=== PATIENT | female | born 1980 | race Caucasian/White ===

== ENCOUNTER 2016-08-22 14:31 | Emergency (ER) | payer OTHER ==
[2016-08-22] MEDS ORDERED: HYDROXYZINE PAMOATE 50 MG CAPSULE PO ONE (16:16)
[2016-08-22] MEDS ORDERED: FAMOTIDINE 20 MG TABLET PO ONE (16:16)
--- NOTE | 2016-08-22 16:17 | ER Document Report ---
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 She is takes up to 100 mg of Benadryl without relief. She saw another ER provider on Wednesday at a hospital in [place] and they told her she had a dermatitis. I gave her a shot of Decadron and gave her or prednisone which she does not want to take. She wants to know what it is and she wants it to be gone. 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 No exposure to poison filomena. She did cut the grass 2 days prior to this occurring. She states that the last time she had it there was a steroid lotion that she used on her body that helped. Associated Symptoms: None Exacerbated by: Denies Relieved by: Denies Similar symptoms previously: Yes Recently seen / treated by doctor: Yes - ROS ROS below otherwise negative: Yes Systems Reviewed and Negative: Yes All other systems reviewed and negative - DERM Skin Color: Normal Past Medical History - General Information source: Patient - Social History Smoking Status: Never Smoker Frequency of alcohol use: None Drug Abuse: None Lives with: Spouse/Significant other Family History: Reviewed & Not Pertinent Patient has suicidal ideation: No Patient has homicidal ideation: No - Medical History Medical History: Negative Renal/ Medical History: Denies: Hx Peritoneal Dialysis Surgical Hx: Negative Vertical Provider Document - CONSTITUTIONAL Agree With Documented VS: Yes - INFECTION CONTROL TRAVEL OUTSIDE OF THE [place]. IN LAST 30 DAYS: No - HEENT HEENT: Normocephalic. negative: Conjuctival Injection, Pharyngeal Erythema - NECK Neck: Supple - RESPIRATORY Respiratory: Breath Sounds Normal, No Respiratory Distress O2 Sat by Pulse Oximetry: 100 - CARDIOVASCULAR Cardiovascular: Regular Rate, Regular Rhythm - GI/ABDOMEN Gastrointestinal: Abdomen Soft, Abdomen Non-Tender - NEURO Level of Consciousness: Awake, Alert - DERM Integumentary: Rash - Isolated papular scaling lesions that she years scratching on her upper back, ankles and dorsal forearms. She does have a wider scaling patch that almost like eczema but not a herald patch waistline. No wheals. Course - Vital Signs Vital signs: Temp Pulse Resp BP Pulse Ox 98.3 F 69 18 104/54 L 100 08/22/16 14:45 08/22/16 14:45 08/22/16 14:45 08/22/16 14:45 08/22/16 14:45 Discharge - Discharge Clinical Impression: Dermatitis, Itching Condition: Good Disposition: HOME, SELF-CARE Instructions: Topical Steroid Cream or Ointment ([facility]), Acid-Suppressing Medication ([facility]) Additional Instructions: see the structural steel equipment erector [place] if worse Please complete the patient satisfaction survey if you get one, and return it.. If you do not receive a survey, then you can go to the [facility] website, [email or web address] and place your comments about your very good care. Thank you very much. It was a pleasure being your medical provider today. Prescriptions: Hydroxyzine Pamoate 50 mg PO Q4HP PRN #60 capsule PRN Reason: Fluocinolone/Shower Cap [Bsucd-Uolbboo-Qw Scalp Oil] 1 applic TP DAILY #120 oil Referrals: JUMANA SMALLS, DO [ACTIVE STAFF] - Follow up as needed
[2016-08-22 16:36] VITALS: BP 96/57
== END 2016-08-22 16:36 | disposition home or self-care (01) ==
LOC: ER 14:31
DX: L30.9 Dermatitis, unspecified (principal)
CPT/HCPCS: 99282

== ENCOUNTER → 2016-10-07 | Outpatient (CLI) | payer OTHER ==
--- NOTE | 2016-10-07 10:10 | RADIOLOGY REPORT (SQ) ---
EXAM DESCRIPTION: CT SINUSES FOR ENT COMPLETED DATE/TIME: 10/07/2016 7:57 am REASON FOR STUDY: DEVIATED NASAL SEPTUM J34.2 DEVIATED NASAL SEPTUM COMPARISON: None. TECHNIQUE: Noncontrast scanning through the paranasal sinuses using bone algorithm. Reconstructed MPR images reviewed. All images stored on PACS. Images acquired for image guided surgery. All CT scanners at this facility use dose modulation, iterative reconstruction, and/or weight based d osing when appropriate to reduce radiation dose to as low as reasonably achievable (ALARA). [facility]: Dose Right [facility]: CareDose [facility]: Dose Right [facility]: Teradose 4D [facility]: ConferenceEdge RADIATION DOSE: 59.3 mGy. FINDINGS: NASAL PASSAGES: Clear. No polyps or masses. OSTEOMEATAL UNITS AND NASOFRONTAL DUCTS: Patent. No agger nasi or Makayla cells. MAXILLARY SINUSES: Well-pneumatized and clear. Maxillary sinus outlets are patent. ETHMOID SINUSES: Well-pneumatized and clear. SPHENOID SINUSES: Well-pneumatized and clear. No sphenoethmoid air cells or pneumatized pterygoid rec ess. No pneumatized dorsal sella. FRONTAL SINUSES: Well-pneumatized and clear. MASTOID AIR CELLS: Clear. ORBITS: Normal and symmetrical. NASAL SEPTUM: Very mild leftward nasal septal deviation along its mid 3rd, best shown on coronal imag es 72 through 82. No nasal septal spurs. TEMPOROMANDIBULAR JOINTS: Normal. TURBINATES: No pneumatized turbinates. MUCOPERIOSTEAL THICKENING: No. MUCOCELE: No. OTHER: No other significant findings. IMPRESSION: NO EVIDENCE OF ACUTE SINUSITIS. Very mild leftward nasal septal deviation along its mid 3rd. TECHNICAL DOCUMENTATION: JOB ID: [id number] Quality ID # [id number]: Final reports with documentation of one or more dose reduction techniques (e.g., Au tomated exposure control, adjustment of the mA and/or kV according to patient size, use of iterative reconstruction technique) 2010 [employer]- All Rights Reserved
== END ==
LOC: RAD 07:26
PROVIDERS: ATTEND Otolaryngology
DX: J34.2 Deviated nasal septum (principal)
CPT/HCPCS: 70486

== ENCOUNTER 2017-07-01 08:56 | Emergency (ER) | payer OTHER ==
[2017-07-01 09:03] VITALS: BP 100/60
[2017-07-01] MEDS ORDERED: ONDANSETRON 4 MG TAB.RAPDIS PO ONE (09:47)
--- NOTE | 2017-07-01 09:52 | ER Document Report ---
HPI - HPI Pain Level: 4 Notes: Patient is a 36-year-old female who presents to the ED complaining of left ear pain, nausea, and occasional dizziness 2-3 days. Patient states that she had a sinus infection last week and had medication for that which improved her sinus congestion. Patient states that she is still eating and drinking without any difficulties, but does have a decreased p.o. intake. Patient states that the left ear pain is worsened with pressure. She has been using some over-the- counter meds with minimal relief. Patient states that she also does have occasional migraines, but currently does not have any headache. Patient is on medications for her chronic migraines. Patient states that she currently is not dizzy. Denies any smoking or IV drug use. Patient denies any and does not want to do a test. Denies any headache, fever, neck pain , changes in vision/speech/mentation/hearing, URI, sore throat, chest pain, palpitations, syncope, cough, shortness of breath, wheeze, dyspnea, abdominal pain, vomiting/diarrhea, urinary retention, dysuria, hematuria, or rash. - ROS Systems Reviewed and Negative: Yes All other systems reviewed and negative - CONSTITUTIONAL Constitutional: DENIES: Fever - none recorded, Chills - EENT EENT: REPORTS: Ear Pain - left. DENIES: Sore Throat, Eye problems - NEURO Neurology: REPORTS: Headache - global. DENIES: Vision blurred Past Medical History - Social History Smoking Status: Never Smoker Chew tobacco use (# tins/day): No Frequency of alcohol use: None Drug Abuse: None Family History: Reviewed & Not Pertinent Patient has suicidal ideation: No Patient has homicidal ideation: No Neurological Medical History: Reports: Hx Migraine Renal/ Medical History: Denies: Hx Peritoneal Dialysis Musculoskeltal Medical History: Reports Hx Arthritis Psychiatric Medical History: Reports: Hx Depression - anxiety Past Surgical History: Reports: Hx Breast Surgery - lumpectomy, Hx Gynecologic Surgery - ovarian cysts, Hx Orthopedic Surgery - back, Hx Tonsillectomy Vertical Provider Document - CONSTITUTIONAL Agree With Documented VS: Yes Notes: PHYSICAL EXAMINATION: GENERAL: Well-appearing, well-nourished and in no acute distress. A&Ox4. Answers questions appropriately. Moves comfortably w/o notable distress HEAD: Atraumatic, normocephalic. EYES: Pupils equal round and reactive to light, extraocular movements intact, sclera anicteric, conjunctiva are normal. ENT: Left EAC mildly erythemic w/o swelling. + tenderness to palp of the tragus and within the EAC. Rt EAC wnl. TM's intact b/l without erythema, fluid , or perforation. Nares patent and without discharge. oropharynx no erythema without exudates. No tonsilar hypertrophy without erythema or exudate. No palatine shift. Uvula midline. No tongue protrusion. No drooling, hoarseness , or airway compromise. Moist mucous membranes. No sinus tenderness. NECK: Normal range of motion, supple without lymphadenopathy. No rigidity/ meningismus. LUNGS: Breath sounds clear to auscultation bilaterally and equal. No wheezes rales or rhonchi. No retractions HEART: Regular rate and rhythm without murmurs, rubs, gallops. ABDOMEN: Soft, nontender, nondistended abdomen. No guarding, no rebound. No masses appreciated. Normal bowel sounds present. No CVA tenderness bilaterally. No hepatosplenomegaly. NEUROLOGICAL: Normal speech, normal gait. Normal sensory, motor exams PSYCH: Normal mood, normal affect. SKIN: Warm, Dry, normal turgor, no rashes or lesions noted. - INFECTION CONTROL TRAVEL OUTSIDE OF THE U.S. IN LAST 30 DAYS: No - RESPIRATORY O2 Sat by Pulse Oximetry: 100 Course - Re-evaluation Re-evalutation: 07/01/17 09:57 Patient is an afebrile, well-hydrated, 36-year-old female who presents to the ED with acute otitis externa of the left ear. Vitals are stable. PE is otherwise unremarkable. No labs or imaging warranted at this time based on H& P. Patient is nontoxic-appearing. She is tolerating p.o. without any difficulties. Low suspicion for any meningitis, sepsis, peritonsillar/ pharyngeal abscess, respiratory compromise, Jack's, mastoiditis, or other emergent systemic condition at this time. Patient is aware this condition can change from initial presentation and she needs to monitor symptoms closely. I will send her home with a prescription for neomycin otic drops as well as Zofran. Conservative measures otherwise for symptoms. Recheck with your PCM in 3-5 days. Return to the ED with any worsening/concerning symptoms otherwise as reviewed in discharge. Patient is in agreement. - Vital Signs Vital signs: Temp Pulse Resp BP Pulse Ox 98.1 F 75 16 100/60 100 07/01/17 09:01 07/01/17 09:01 07/01/17 09:01 07/01/17 09:01 07/01/17 09:01 Discharge - Discharge Clinical Impression: Acute otitis externa of left ear Qualifiers: Otitis externa type: unspecified type Qualified Code(s): H60.502 - Unspecified acute noninfective otitis externa, left ear Condition: Stable Disposition: HOME, SELF-CARE Instructions: Use of Ear Drops ([facility]), Otitis Externa ([facility]) Additional Instructions: Maintain adequate fluid and food intake [place] diet (B.R.A.T.) Bananas, rice, apples, toast, etc Zofran as needed tylenol if needed Monitor for any worsening symptoms Recheck with your PCM in 3-5 days Consider consult with ENT for ongoing/worsening symptoms Return to the ED with any worsening symptoms and/or development of fever, headache, chest pain, palpitations, syncope, shortness of breath, trouble breathing, abdominal pain, n/v/d, blood in stool/urine, weakness, or other worsening symptoms that are concerning to you. Prescriptions: Neomy Sulf/Polymyx B Sulf/Hc [Xcnwxrnl-Rkougjwtp-Wl Ear Soln] 4 drop OT TID #1 bottle Ondansetron [Zofran Odt 4 mg Tablet] 1 - 2 tab PO Q4H PRN #15 tab.rapdis PRN Reason: For Nausea/Vomiting Referrals: DARLINE THOMPSON DO [ASSOCIATE] - Follow up as needed
== END 2017-07-01 10:00 | disposition home or self-care (01) ==
LOC: ER 08:56
DX: H60.502 Unspecified acute noninfective otitis externa, left ear (principal); H92.02 Otalgia, left ear; R11.0 Nausea; R42 Dizziness and giddiness; G43.909 Migraine, unspecified, not intractable, without status migrainosus; Z79.899 Other long term (current) drug therapy
CPT/HCPCS: 99282; S0119

== ENCOUNTER → 2017-10-21 | Outpatient (CLI) | payer OTHER ==
--- NOTE | 2017-10-21 08:20 | RADIOLOGY REPORT (SQ) ---
EXAM DESCRIPTION: CT SINUSES FOR ENT COMPLETED DATE/TIME: 10/21/2017 7:56 am REASON FOR STUDY: ACUTE RECURRENT SINUSITIS, UNSPECIFIED(J01.91), CHRONIC SINUSITIS (J32.9) J01.91 ACUTE RECURRENT SINUSITIS, UNSPECIFIED J32.9 CHRONIC SINUSITIS, UNSPECIFIED H69.83 OTHER SPECIFIED DISORDERS OF EUSTACHIAN TUBE, BILATER COMPARISON: CT sinuses 10/07/2016 TECHNIQUE: Noncontrast scanning through the paranasal sinuses using bone algorithm. Reconstructed MPR images reviewed. All images stored on PACS. Images acquired for image guided surgery. All CT scanners at this facility use dose modulation, iterative reconstruction, and/or weight based d osing when appropriate to reduce radiation dose to as low as reasonably achievable (ALARA). [facility]: Dose Right [facility]: CareDose [facility]: Dose Right [facility]: Teradose 4D [facility]: LitRes RADIATION DOSE: 46 mGy. FINDINGS: NASAL PASSAGES: Clear. No polyps or masses. OSTEOMEATAL UNITS AND NASOFRONTAL DUCTS: Patent. No agger nasi left Makayla cells. Small right Makayla cell coronal image 100. MAXILLARY SINUSES: Well-pneumatized and clear. Maxillary sinus outlets are patent. ETHMOID SINUSES: Well-pneumatized and clear. SPHENOID SINUSES: Well-pneumatized and clear. No sphenoethmoid air cells or pneumatized pterygoid rec ess. No pneumatized dorsal sella. FRONTAL SINUSES: Well-pneumatized and clear. MASTOID AIR CELLS: Clear. ORBITS: Normal and symmetrical. NASAL SEPTUM: Mild leftward nasal septal deviation No nasal septal spurs. TEMPOROMANDIBULAR JOINTS: Normal. TURBINATES: No pneumatized turbinates. MUCOPERIOSTEAL THICKENING: No. MUCOCELE: No. OTHER: Bilateral mastoid air cells and middle ear cavities are clear. Bilateral station tubes appear patent. No gross nasopharyngeal mass. IMPRESSION: NO EVIDENCE OF ACUTE SINUSITIS. TECHNICAL DOCUMENTATION: JOB ID: [id number] Quality ID # [id number]: Final reports with documentation of one or more dose reduction techniques (e.g., Au tomated exposure control, adjustment of the mA and/or kV according to patient size, use of iterative reconstruction technique) 2010 [employer]- All Rights Reserved Reading location - IP/workstation name: [email or web address]
== END ==
LOC: RAD 07:25
PROVIDERS: ATTEND Otolaryngology
DX: J01.91 Acute recurrent sinusitis, unspecified (principal); H69.83 Other specified disorders of Eustachian tube, bilateral
CPT/HCPCS: 70486

== ENCOUNTER 2017-10-22 11:09 | Observation (INO) | payer OTHER ==
[~2017-10-22 11:09] MED LIST: ACETAMINOPHEN 1,000 MG/100 ML RTUPB IV ONE; CEFAZOLIN 2 GM/D5W RTU 2 GM/50 ML RTUPB IV PRN; DEXAMETHASONE SOD PHOSPHATE INJ 4 MG/1 ML VIAL ONE; FENTANYL CITRATE INJ/PF 100 MCG/2 ML AMPUL ONE; LIDOCAINE 2% INJ-PF (20 MG/ML) 10 ML AMPUL ONE; MIDAZOLAM 2 MG/2 ML INJ ONE; PROPOFOL INJ 200 MG/20 ML VIAL IV ONE
[2017-10-22] MEDS ORDERED: MINERAL OIL (STERILE) 10 ML VIAL ONE (11:15)
[2017-10-22] MEDS ORDERED: BUPIVACAINE HCL 0.5%/EPI 1:200000 INJ 1.8 ML CARTRIDGE ONE (11:16)
[2017-10-22] MEDS ORDERED: BUPIVACAINE HCL 0.5%-EPI 1:200000 INJ/PF 30 ML VIAL ONE (11:16)
[2017-10-22] MEDS ORDERED: OXYMETAZOLINE HCL 0.05% NASAL SPRAY 15 ML BOTTLE ONE (11:17)
[2017-10-22] MEDS ORDERED: FAMOTIDINE INJ/PF 20 MG/2 ML SDV IV ONE (11:42)
[2017-10-22 12:03] LABS: ANION GAP 10 (5-19); BLOOD UREA NITROGEN 17 mg/dL (7-20); CALCIUM 8.9 mg/dL (8.4-10.2); CARBON DIOXIDE 27 mmol/L (22-30); CHLORIDE 108 mmol/L (98-107); GLUCOSE 78 mg/dL (75-110); POTASSIUM 4.6 mmol/L (3.6-5.0); SODIUM 144.7 mmol/L (137-145)
[2017-10-22 12:15] LABS: HEMOGLOBIN 12.5 g/dL (12.0-15.5); MEAN CORPUSCULAR HGB CONC 33.8 g/dL (32.0-36.0); MEAN CORPUSCULAR VOLUME 92 fl (80-97); PLATELET COUNT 272 10^3/uL (150-450); RED BLOOD COUNT 4.04 10^6/uL (3.72-5.28); RED CELL DISTRIBUTION WIDTH 13.9 % (11.5-14.0); WHITE BLOOD COUNT 6.3 10^3/uL (4.0-10.5)
[2017-10-22] MEDS ORDERED: BACITRACIN ZINC OINTMENT 15 GM ONE (13:02)
[2017-10-22] MEDS ORDERED: DIPHENHYDRAMINE HCL 50 MG/ML VIAL IV PRN (13:08)
[2017-10-22] MEDS ORDERED: MEPERIDINE HCL/PF INJ 25 MG/1 ML DISP.SYRIN IV PRN (13:08)
[2017-10-22] MEDS ORDERED: MORPHINE SULFATE 10 MG/ML INJ IV PRN (13:08)
[2017-10-22] MEDS ORDERED: PROMETHAZINE HCL INJ 25 MG/1 ML VIAL IV PRN ×3 (13:08→13:54)
[2017-10-22] MEDS ORDERED: FENTANYL CITRATE INJ/PF 100 MCG/2 ML AMPUL IV PRN ×3 (13:08)
[2017-10-22] MEDS: FENTANYL CITRATE INJ/PF 100 MCG/2 ML AMPUL ONE ×2 (13:47→13:51)
[2017-10-22] MEDS ORDERED: ONDANSETRON HCL INJ/PF 4 MG/2 ML SDV IV PRN (13:54)
[2017-10-22] MEDS ORDERED: RINGERS SOLUTION,LACTATED 1,000 ML IV PRN (13:54)
[2017-10-22] MEDS ORDERED: HYDROCODONE/ACETAMINOPHEN 5-325 MG TABLET PO PRN (13:54)
[2017-10-22] MEDS ORDERED: ONDANSETRON 4 MG TAB.RAPDIS PO PRN (14:09)
[2017-10-22] MEDS ORDERED: PROMETHAZINE HCL INJ 25 MG/1 ML VIAL ONE (14:16)
[2017-10-22] MEDS: HYDROMORPHONE HCL INJ/PF 2 MG/ML AMPULE ONE ×2 (14:17→15:10)
[2017-10-22 16:40] VITALS: BP 90/50
[2017-10-22] MEDS ORDERED: SUCCINYLCHOLINE CHLORIDE INJ 200 MG/10 ML VIAL ONE (16:44)
[2017-10-22] MEDS ORDERED: METOCLOPRAMIDE HCL INJ/PF 10 MG/2 ML SDV ONE (16:44)
--- NOTE | 2017-10-23 10:10 | OPERATIVE REPORT E ---
Operative Report NAME: KELVIN AVILES : 1980 AGE: 37Y DATE OF SURGERY: 10/22/2017 ROOM: OR PREOPERATIVE DIAGNOSES: 1. Acute recurrent sinusitis. 2. Chronic rhinosinusitis. 3. Nasal septal deviation. 4. Bilateral inferior turbinate hypertrophy. 5. Chronic eustachian tube dysfunction. POSTOPERATIVE DIAGNOSES: 1. Acute recurrent sinusitis. 2. Chronic rhinosinusitis. 3. Nasal septal deviation. 4. Bilateral inferior turbinate hypertrophy. 5. Chronic eustachian tube dysfunction. OPERATIONS PERFORMED: 1. Bilateral image guidance transnasal maxillary sinus balloon sinuplasty via bilateral transnasal rigid surgical endoscopy. 2. Bilateral image guidance transnasal/intranasal frontal sinus balloon sinuplasty via bilateral transnasal rigid surgical endoscopy. 3. Bilateral eustachian tube balloon plasty with bilateral transnasal rigid surgical endoscopy. SURGEON: DARLINE THOMPSON D.O. ANESTHETIC: General endotracheal tube. ANESTHESIA STAFF: Tod SAENZ ESTIMATED BLOOD LOSS: 15 mL. FLUIDS: 1400 mL. COMPLICATIONS: None. DRAINS: None. SPONGE COUNT: Verified. MATERIALS FORWARDED SPECIMEN: None. FINDINGS: 1. There was no sign of nasal polyp disease changes or sinus discharge or postnasal drainage noted. 2. The yamila appeared flattened in appearance. 3. Left nasal septal deviation involving bone and cartilage. 4. Bilateral inferior turbinate hypertrophy. 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 The patient was referred for and she complained of a history of symptoms consistent with acute recurrent sinusitis episodes occurring each year requiring antibiotics and these have gone on for a number of years. The patient complains of frontal sinus and maxillary sinus pain especially. The patient also complained of a history of symptoms consistent with chronic rhinosinusitis over the years. The patient otherwise denied having difficulty with nasal air flow over the years. The patient also underwent CT sinus imaging and office-based flexible endoscopy. The patient also complained of a chronic history over the years of eustachian tube dysfunction resulting a variety of ear symptoms consisting of ear pain, pressure, fullness, and congestion. After extensive discussion with the patient, recommendation and plan was made for bilateral maxillary, frontal sinus, and eustachian tube balloon plasty, which she voiced an understanding of and agreed with. The procedures and all of their risks and complications were all discussed in detail with the patient. She voiced an understanding and was in agreement and consent was obtained. PROCEDURE: The patient was taken to the main operating room and placed on the operating room table in the supine position. Appropriate monitors were placed. Using mask and IV access, general anesthesia was induced. The patient was transorally intubated without difficulty. The patient was positioned and prepped for image guidance balloon sinus and eustachian tube surgery. The image guidance system was set up and adjusted appropriately at the beginning of the case. The patient underwent a nasal examination with injection of local anesthetic with epinephrine to establish a nasal block. Afrin-soaked neuro patties were placed on each side. The patient was then prepped and draped in the usual fashion for nasal, sinus, and eustachian tube surgery. At this point, the Afrin-soaked neuro patties were removed. With the use of bilateral 0-degree rigid surgical endoscopy, the eustachian tube balloon plasty system was introduced and the eustachian tube balloon was inserted on each side without difficulty. It was inflated to 12 atmospheres on each side and remained in place for 2 minutes per side. This system was then withdrawn. Next, the frontal sinus image guidance balloon sinuplasty system was introduced with the assistance of 0-degree rigid surgical endoscopy on each side. This balloon system was inserted through the frontal sinus recess on each side and inflated to 12 atmospheres at 2 positions. This was removed. Next, the image guidance maxillary balloon sinuplasty system was introduced with the assistance of 0-degree rigid surgical endoscopy on each side. It was entered through the maxillary sinus os and inflated to 12 atmospheres on each side. Once complete, the balloon system was withdrawn. The nose was thoroughly irrigated and this was suctioned. There was adequate hemostasis noted. Next, one Telfa cotton nasal pack with bacitracin ointment was placed per side and these were secured with silk suture, which was also secured outside the nose. At this point, the patient's nose was cleaned and dried and she was returned to the anesthesia staff and was allowed to emerge from general anesthesia. The patient was then extubated in the main operating room and was transported to the post-anesthesia recovery unit in stable condition. There were no complications. DICTATING PHYSICIAN: DARLINE THOMPSON D.O. [id number] PHY#: [id number] ID: [id number] JOB#: [id number] ACCT: [id number] cc:DARLINE THOMPSON D.O. > YANCY
== END 2017-10-22 16:44 | disposition home or self-care (01) ==
LOC: OROUT 11:09 → INOR 13:54
PROVIDERS: ADMIT Otolaryngology; ATTEND Otolaryngology
PROC: 097F8ZZ Dilation of Right Eustachian Tube, Via Natural or Artificial Opening Endoscopic (ICD-10-PCS; 2017-10-22)
PROC: 09QT8ZZ Repair Left Frontal Sinus, Via Natural or Artificial Opening Endoscopic (ICD-10-PCS; 2017-10-22)
PROC: 09QQ8ZZ Repair Right Maxillary Sinus, Via Natural or Artificial Opening Endoscopic (ICD-10-PCS; 2017-10-22)
PROC: 09QR8ZZ Repair Left Maxillary Sinus, Via Natural or Artificial Opening Endoscopic (ICD-10-PCS; 2017-10-22)
PROC: 09QS8ZZ Repair Right Frontal Sinus, Via Natural or Artificial Opening Endoscopic (ICD-10-PCS; 2017-10-22)
PROC: 097G8ZZ Dilation of Left Eustachian Tube, Via Natural or Artificial Opening Endoscopic (ICD-10-PCS; principal; 2017-10-22 13:00)
DX: J01.91 Acute recurrent sinusitis, unspecified (principal); J32.9 Chronic sinusitis, unspecified; H69.83 Other specified disorders of Eustachian tube, bilateral; J34.2 Deviated nasal septum; J34.3 Hypertrophy of nasal turbinates
CPT/HCPCS: 31295; 31296; C9745; 160; 36415; 80048; 81025; 85027; J0131; J0330; J0690; J1100; J1170; J2250; J2550; J2704; J2765; J3010; J3490; S0028

== ENCOUNTER 2017-12-18 16:52 | Emergency (ER) | payer OTHER ==
[2017-12-18] MEDS ORDERED: LIDOCAINE 1% INJ-PF (10 MG/ML) 30 ML SDV INJ ONE (18:06)
--- NOTE | 2017-12-18 18:33 | ER Document Report ---
ED Medical Screen (RME) - General Chief Complaint: Laceration Stated Complaint: BIRD BITE Time Seen by Provider: 12/18/17 18:06 TRAVEL OUTSIDE OF THE U.S. IN LAST 30 DAYS: No - HPI Notes: 12/18/17 18:33 Bit by a bird - Related Data Allergies/Adverse Reactions: bupropion [From Wellbutrin] Allergy (Severe, Verified 12/18/17 17:06) Seizures ciprofloxacin [From Cipro] Allergy (Severe, Verified 12/18/17 17:06) Renal failure ibuprofen [From Motrin] Allergy (Severe, Verified 12/18/17 17:06) Renal failure NSAIDS (Non-Steroidal Anti-Inflamma Allergy (Severe, Verified 12/18/17 17:06) Renal failure Penicillins Allergy (Severe, Verified 12/18/17 17:06) Hives vancomycin Allergy (Severe, Verified 12/18/17 17:06) Shortness of Breath Past Medical History - Past Medical History Cardiac Medical History: Denies: Hx Coronary Artery Disease, Hx Heart Attack, Hx Hypertension Pulmonary Medical History: Denies: Hx Asthma, Hx Bronchitis, Hx COPD, Hx Pneumonia Neurological Medical History: Reports: Hx Migraine. Denies: Hx Cerebrovascular Accident, Hx Seizures Renal/ Medical History: Reports: Hx Kidney Stones. Denies: Hx Peritoneal Dialysis Musculoskeltal Medical History: Reports Hx Arthritis - back Psychiatric Medical History: Reports: Hx Depression - anxiety Past Surgical History: Reports: Hx Breast Surgery - lumpectomy, Hx Gynecologic Surgery - ovarian cysts, Hx Nose Surgery - Sinus dilation, Hx Orthopedic Surgery - back, Hx Tonsillectomy - Immunizations Hx Diphtheria, Pertussis, Tetanus Vaccination: Yes History of Influenza Vaccine for 01/2017 - 06/2017 Season: Yes Influenza Administration Date for 01/2017 - 06/2017 Season: 01/26/17 Review of Systems - Review of Systems -: Yes ROS unobtainable due to patient's medical condition - Bird bite Physical Exam - Vital signs Vitals: Temp Pulse Resp BP Pulse Ox 98.7 F 76 16 104/62 96 12/18/17 17:10 12/18/17 17:10 12/18/17 17:10 12/18/17 17:10 12/18/17 17:10 - General General appearance: Appears well In distress: None - Cardiovascular Rhythm: Regular Heart sounds: Normal auscultation Course - Vital Signs Vital signs: Temp Pulse Resp BP Pulse Ox 98.7 F 76 16 104/62 96 12/18/17 17:10 12/18/17 17:10 12/18/17 17:10 12/18/17 17:10 12/18/17 17:10
--- NOTE | 2017-12-18 18:36 | RADIOLOGY REPORT (SQ) ---
EXAM DESCRIPTION: HAND RIGHT 2 VIEWS COMPLETED DATE/TIME: 12/18/2017 6:25 pm REASON FOR STUDY: bird bite pain in the 4th and 5th fingers COMPARISON: None. EXAM PARAMETERS: NUMBER OF VIEWS: Three views. TECHNIQUE: AP, lateral and oblique radiographic images acquired of the right hand. LIMITATIONS: None. FINDINGS: MINERALIZATION: Normal. BONES: No acute fracture or dislocation. No worrisome bone lesions. JOINTS: No effusions. SOFT TISSUES: There is a small soft tissue air bubble in the skin web the between the bases of the 4t h and 5th fingers. No retained radiopaque foreign body. No adjacent bony abnormality OTHER: No other significant finding. IMPRESSION: Small soft tissue laceration with air bubble in the skin, in the soft tissues between th e bases of the 4th and 5th fingers. No retained radiopaque foreign body. No underlying fracture TECHNICAL DOCUMENTATION: JOB ID: [id number] [employer]- All Rights Reserved Reading location - IP/workstation name: [email or web address]
--- NOTE | 2017-12-18 19:13 | ER Document Report ---
ED General - General Chief Complaint: Laceration Stated Complaint: BIRD BITE Time Seen by Provider: 12/18/17 18:06 Notes: Patient is a 37 year old female without chronic medical problems who presents after sustaining a laceration on her left hand after being bitten by her pet bird. She states that this occurred earlier today. Since that time she has noted a dull, throbbing, aching pain to the affected area. Nothing improves or worsens the pain. She is up-to-date on all her immunizations. They got rid of the bird today. She denies any additional injuries or concerns. She has not seen her general doctor regarding today's concerns. TRAVEL OUTSIDE OF THE [place] IN LAST 30 DAYS: No - Related Data Allergies/Adverse Reactions: bupropion [From Wellbutrin] Allergy (Severe, Verified 12/18/17 17:06) Seizures ciprofloxacin [From Cipro] Allergy (Severe, Verified 12/18/17 17:06) Renal failure ibuprofen [From Motrin] Allergy (Severe, Verified 12/18/17 17:06) Renal failure NSAIDS (Non-Steroidal Anti-Inflamma Allergy (Severe, Verified 12/18/17 17:06) Renal failure Penicillins Allergy (Severe, Verified 12/18/17 17:06) Hives vancomycin Allergy (Severe, Verified 12/18/17 17:06) Shortness of Breath Past Medical History - General Information source: Patient - Social History Smoking Status: Never Smoker Frequency of alcohol use: None Drug Abuse: None Lives with: Spouse/Significant other Family History: Reviewed & Not Pertinent Patient has suicidal ideation: No Patient has homicidal ideation: No - Past Medical History Cardiac Medical History: Denies: Hx Coronary Artery Disease, Hx Heart Attack, Hx Hypertension Pulmonary Medical History: Denies: Hx Asthma, Hx Bronchitis, Hx COPD, Hx Pneumonia Neurological Medical History: Reports: Hx Migraine. Denies: Hx Cerebrovascular Accident, Hx Seizures Renal/ Medical History: Reports: Hx Kidney Stones. Denies: Hx Peritoneal Dialysis Musculoskeletal Medical History: Reports Hx Arthritis - back Psychiatric Medical History: Reports: Hx Depression - anxiety Past Surgical History: Reports: Hx Breast Surgery - lumpectomy, Hx Gynecologic Surgery - ovarian cysts, Hx Nose Surgery - Sinus dilation, Hx Orthopedic Surgery - back, Hx Tonsillectomy - Immunizations Hx Diphtheria, Pertussis, Tetanus Vaccination: Yes Review of Systems - Review of Systems Notes: Constitutional: Negative for fever. Eyes: Negative for visual changes. ENT: Negative for facial injury Cardiovascular: Negative for chest injury. Respiratory: Negative for shortness of breath. Gastrointestinal: Negative for abdominal injury. Genitourinary: Negative for genital injury Musculoskeletal: Negative for back injury. Skin: Positive for laceration/abrasions. Neurological: Negative for head injury. Physical Exam - Vital signs Vitals: Temp Pulse Resp BP Pulse Ox 98.7 F 76 16 104/62 96 12/18/17 17:10 12/18/17 17:10 12/18/17 17:10 12/18/17 17:10 12/18/17 17:10 Interpretation: Normal Notes: PHYSICAL EXAMINATION: GENERAL: Well-appearing, well-nourished and in no acute distress. HEAD: Atraumatic, normocephalic. EYES: sclera anicteric, conjunctiva are normal. ENT: Moist mucous membranes. NECK: Normal range of motion LUNGS: Normal work of breathing HEART: 2+ radial pulses bilaterally, capillary refill less than 1 second in all digits of the left hand EXTREMITIES: no pitting or edema. No cyanosis. Full flexion extension of the DIP, MCP and PIP of all digits of the left hand NEUROLOGICAL: No focal neurological deficits. Moves all extremities spontaneously and on command. PSYCH: Normal mood, normal affect. SKIN: Warm, Dry, normal turgor, 0.5 cm superficial laceration between the fourth and fifth metacarpals of the left hand. Course - Re-evaluation Re-evalutation: 12/18/17 19:11 Patient presents with a 0.5 cm laceration between the fourth and fifth digits of the right hand which is her dominant hand that was sustained after her pet bird bit her. Her tetanus is up-to-date. There is some bruising around the wound but it is otherwise a very clean laceration. The wound was cleaned, irrigated and closed with a single stitch. Her tetanus is already up-to-date. X-ray is unremarkable with the exception of the noted laceration. RMU motor and sensory distribution is intact. Full flexion and extension at the MCP, PIP , DIP of all digits against resistance. At this time will discharge with return precautions and follow-up recommendations. Verbal discharge instructions given a the bedside and opportunity for questions given. Medication warnings reviewed. Patient is in agreement with this plan and has verbalized understanding of return precautions and the need for primary care follow-up in the next 24-72 hours. - Vital Signs Vital signs: Temp Pulse Resp BP Pulse Ox 98.5 F 69 14 108/49 L 100 12/18/17 19:23 12/18/17 19:23 12/18/17 19:23 12/18/17 19:23 12/18/17 19:23 - Diagnostic Test Radiology reviewed: Image reviewed, Reports reviewed Radiology results interpreted by me: 12/18/17 19:12 Right hand x-ray: No acute fracture or retained foreign body. Procedures - Laceration/Wound Repair Left Hand Wound length (cm): 0.5 - . Wound's Depth, Shape: Superficial Laceration pre-procedure: Sterile PPE donned Anesthetic type: 1% Lidocaine Volume Anesthetic (mLs): 1 Wound explored: Clean Irrigated w/ Saline (mLs): 500 Wound Debrided: Minimal Wound Repaired With: Sutures Suture Size/Type: 5:0, Prolene Number of Sutures: 1 Post-procedure wound care: Sterile dressing applied Post-procedure NV exam normal: Yes Complications: No Discharge - Discharge Clinical Impression: Bitten by other birds, initial encounter Laceration of right hand Qualifiers: Encounter type: initial encounter Foreign body presence: without foreign body Qualified Code(s): S61.411A - Laceration without foreign body of right hand, initial encounter Condition: Good Disposition: HOME, SELF-CARE Additional Instructions: Please return to your primary doctor, the ED, or an urgent care in 7 days for suture removal. Return immediately if you develop spreading redness around the wound, pus from the wound, worsening pain, or a fever of >100.4. Keep the area clean and dry. Wash gently with soap and water twice daily and cover with antibiotic ointment.
[2017-12-18 19:31] VITALS: BP 108/49
== END 2017-12-18 19:29 | disposition home or self-care (01) ==
LOC: ER 16:52
PROC: 0HQGXZZ Repair Left Hand Skin, External Approach (ICD-10-PCS; principal; 2017-12-18)
DX: S61.412A Laceration without foreign body of left hand, initial encounter (principal); W61.91XA Bitten by other birds, initial encounter
CPT/HCPCS: 99283; 73120; 12001; J3490

== ENCOUNTER 2018-04-27 21:13 | Emergency (ER) | payer OTHER ==
[2018-04-27] MEDS ORDERED: ASPIRIN 81 MG TABLET, CHEWABLE PO ONE (21:25)
--- NOTE | 2018-04-27 22:06 | RADIOLOGY REPORT (SQ) ---
EXAM DESCRIPTION: XR CHEST 1 VIEW COMPLETED DATE/TME: 04/27/2018 21:25 CLINICAL HISTORY: 37 years, Female, cp Findings: The heart is not enlarged. Lungs are clear. No pleural effusion. No pneumothorax. IMPRESSION: No acute disease.
[2018-04-27 22:48] LABS: ABSOLUTE EOSINOPHILS # (AUTO) 0.1 10^3/uL (0.0-0.6); ABSOLUTE LYMPHOCYTES (AUTO) 1.5 10^3/uL (0.5-4.7); ABSOLUTE MONOCYTES (AUTO) 0.7 10^3/uL (0.1-1.4); ABSOLUTE NEUT (AUTO) 2.4 10^3/uL (1.7-8.2); BASOPHILS % (AUTO) 0.7 % (0-2); EOSINOPHILS % (AUTO) 2.9 % (0-6); HEMATOCRIT 36.8 % (36.0-47.0); HEMOGLOBIN 12.5 g/dL (12.0-15.5); LYMPHOCYTES % (AUTO) 31.6 % (13-45); MEAN CORPUSCULAR HEMOGLOBIN 31.1 pg (27.0-33.4); MEAN CORPUSCULAR VOLUME 91 fl (80-97); MONOCYTES % (AUTO) 14.1 % (3-13); PLATELET COUNT 267 10^3/uL (150-450); RED BLOOD COUNT 4.03 10^6/uL (3.72-5.28); RED CELL DISTRIBUTION WIDTH 13.6 % (11.5-14.0); SEGMENTED NEUTROPHILS % (AUTO) 50.7 % (42-78); TOTAL CELLS COUNTED % (AUTO) 100 %; WHITE BLOOD COUNT 4.7 10^3/uL (4.0-10.5)
[2018-04-27 23:14] LABS: ALANINE AMINOTRANSFERASE 28 U/L (9-52); ALBUMIN 4.3 g/dL (3.5-5.0); ALKALINE PHOSPHATASE 55 U/L (38-126); ANION GAP 7 (5-19); ASPARTATE AMINO TRANSFERASE 33 U/L (14-36); BILIRUBIN,DIRECT 0.1 mg/dL (0.0-0.4); BILIRUBIN,TOTAL 0.2 mg/dL (0.2-1.3); BLOOD UREA NITROGEN 19 mg/dL (7-20); CALCIUM 9.1 mg/dL (8.4-10.2); CARBON DIOXIDE 28 mmol/L (22-30); CHLORIDE 108 mmol/L (98-107); CREATINE KINASE 50 U/L (30-135); GLUCOSE 76 mg/dL (75-110); POTASSIUM 3.7 mmol/L (3.6-5.0); SODIUM 143.1 mmol/L (137-145); TOTAL PROTEIN 7.1 g/dL (6.3-8.2)
--- NOTE | 2018-04-27 23:23 | ER Document Report ---
ED General - General Chief Complaint: Chest Tightness Stated Complaint: SHORTNESS OF BREATH Time Seen by Provider: 04/27/18 23:22 Notes: Patient is a 37-year-old female presents with complaint of cough and congestion difficulty breathing. Says her throat hurts from all the coughing. She said because that she has not been drinking much because it hurts to swallow. She says that she does not think she is been wheezing however she feels as if she cannot get a deep breath in. Because that she feels tightness in her chest. She does not smoke. She said an inhaler left over from when she had bronchitis in the past. She says that she ran out of this inhaler. She denies fevers. Denies history of asthma. She denies any extremity pain or swelling. She has no other complaints at this time. TRAVEL OUTSIDE OF THE [place] IN LAST 30 DAYS: No - Related Data Allergies/Adverse Reactions: bupropion [From Wellbutrin] Allergy (Severe, Verified 12/18/17 17:06) Seizures ciprofloxacin [From Cipro] Allergy (Severe, Verified 12/18/17 17:06) Renal failure ibuprofen [From Motrin] Allergy (Severe, Verified 12/18/17 17:06) Renal failure NSAIDS (Non-Steroidal Anti-Inflamma Allergy (Severe, Verified 12/18/17 17:06) Renal failure Penicillins Allergy (Severe, Verified 12/18/17 17:06) Hives vancomycin Allergy (Severe, Verified 12/18/17 17:06) Shortness of Breath Past Medical History - Social History Smoking Status: Never Smoker Frequency of alcohol use: None Drug Abuse: None Family History: Reviewed & Not Pertinent - Past Medical History Cardiac Medical History: Denies: Hx Coronary Artery Disease, Hx Heart Attack, Hx Hypertension Pulmonary Medical History: Denies: Hx Asthma, Hx Bronchitis, Hx COPD, Hx Pneumonia Neurological Medical History: Reports: Hx Migraine. Denies: Hx Cerebrovascular Accident, Hx Seizures Renal/ Medical History: Reports: Hx Kidney Stones. Denies: Hx Peritoneal Dialysis Musculoskeletal Medical History: Reports Hx Arthritis - back Psychiatric Medical History: Reports: Hx Depression - anxiety Past Surgical History: Reports: Hx Breast Surgery - lumpectomy, Hx Gynecologic Surgery - ovarian cysts, Hx Nose Surgery - Sinus dilation, Hx Orthopedic Surgery - back, Hx Tonsillectomy - Immunizations Hx Diphtheria, Pertussis, Tetanus Vaccination: Yes Review of Systems - Review of Systems Notes: My Normal Review Basic REVIEW OF SYSTEMS: CONSTITUTIONAL : Denies fever, chills, or sweats. Denies recent illness. EENT: Sore throat CARDIOVASCULAR: Denies chest pain. RESPIRATORY: Feels short of breath. Recurrent coughing. GASTROINTESTINAL: Denies abdominal pain. Denies nausea, vomiting, or diarrhea. GENITOURINARY: Denies difficulty urinating, painful urination, burning, frequency, or blood in urine. MUSCULOSKELETAL: Denies neck or back pain or joint pain or swelling. SKIN: Denies rash or skin lesions. NEUROLOGICAL: Denies altered mental status or loss of consciousness. Denies headache. Denies weakness or paralysis or loss of use of either side. Denies problems with gait or speech. Denies sensory or motor loss. ALL OTHER SYSTEMS REVIEWED AND NEGATIVE. Physical Exam - Vital signs Vitals: Temp Pulse Resp BP Pulse Ox 97.7 F 77 22 H 106/63 100 04/27/18 21:22 04/27/18 21:22 04/27/18 21:22 04/27/18 21:22 04/27/18 21:22 - Notes Notes: General Appearance: Well nourished, alert, cooperative, no acute distress, no obvious discomfort. Well-appearing. Dry cough on exam. Vitals: reviewed, See vital signs table. Head: no swelling or tenderness to the head Eyes: PERRL, EOMI, Conjuctiva clear Mouth: No decreasd moisture Throat: No tonsillar inflammation, No airway obstruction Neck: Supple, no neck tenderness Lungs: No wheezing, No rales, No rhonci, No accessory muscle use, good air exchange bilaterally. Heart: Normal rate, Regular rythm, No murmur, no rub Abdomen: Normal BS, soft, No rigidity, No abdominal tenderness, No guarding, no rebound, Extremities: strength 5/5 in all extremities, good pulses in all extremities, no swelling or tenderness in the extremities, no edema. Skin: warm, dry, appropriate color, no rash Neuro: speech clear, oriented x 3, normal affect, responds appropriately to questions. Course - Re-evaluation Re-evalutation: 04/28/18 00:32 Patient's presentation is odd. She feels as if she cannot get a deep breath in. She has no pain with breathing. She is PERC rule negative. I do not feel that she needs a CTA of her chest. She is had URI symptoms leading up to this with recurrent coughing. This seems to be viral in nature. She does not have any wheezing however she continues to say she feels that sometimes is hard to take a deep breath. On exam she looks well. She has no distress. She has recurrent dry cough. Her oxygen saturation is 100% on room air. Her lung ruby are clear. We did do a breathing treatment but she says it may have helped initially but then she started coughing and felt as if she cannot get her in again. She says at times she feels as if her throat is tight even if some difficulty swallowing however she has absolutely no stridor and her breathing is not at all positional. I discussed with her treatment with steroids to see if this would help some. She is agreeable to this. We will give her a dose of Decadron. I informed her if she is not improving in 24-48 hours she should return to ER or follow-up with her doctor for reevaluation. If her breathing gets worse in any way then she should return to the ER immediately. Patient agrees with plan will be discharged home. Dictation of this chart was performed using voice recognition software; therefore, there may be some unintended grammatical errors. 04/28/18 00:34 - Vital Signs Vital signs: Temp Pulse Resp BP Pulse Ox 97.7 F 77 22 H 106/63 100 04/27/18 21:22 04/27/18 21:22 04/27/18 21:22 04/27/18 21:22 04/27/18 21:22 - Laboratory Result Diagrams: 04/27/18 22:23 04/27/18 22:23 Laboratory results interpreted by me: 04/27/18 04/27/18 22:23 22:23 Monocytes % 14.1 H Chloride 108 H - EKG Interpretation by Me Additional EKG results interpreted by me: 04/27/18 23:23 EKG is reviewed and interpreted by me. EKG shows sinus rhythm with a rate of [address] segment elevation or depression. No ischemic T wave inversions. SD interval, QRS duration, QT intervals are within normal range. No old EKG available for comparison. Discharge - Discharge Clinical Impression: Dyspnea Qualifiers: Dyspnea type: unspecified Qualified Code(s): R06.00 - Dyspnea, unspecified Condition: Good Disposition: HOME, SELF-CARE Additional Instructions: We have given a dose of a steroid called Decadron. This will last in your system for the next 4-5 days. Hopefully this will help with your sensation of tightness in her throat and also with the cough that you have been having. Please follow-up with your doctor next 1-2 days. Return to the ER if you are u nable to follow-up with your doctor and you are still having ongoing symptoms. Please return to the ER immediately if you have difficulty breathing is worsening, coughing up of blood, fevers, or if you feel that you are worsening in any way. Dictation of this chart was performed using voice recognition software; therefore, there may be some unintended grammatical errors.
[2018-04-27 23:25] LABS: CREATINE KINASE MB 0.59 ng/mL (<4.55)
[2018-04-27 23:26] LABS: TROPONIN I < 0.012 ng/mL
[2018-04-27] MEDS ORDERED: NORMAL SALINE 500 ML IV ONE (23:31)
[2018-04-27] MEDS ORDERED: IPRATROPIUM/ALBUTEROL 0.5-2.5 MG/3 ML AMPUL NEB ONE (23:31)
[2018-04-28] MEDS ORDERED: DEXAMETHASONE SOD PHOSPHATE INJ 4 MG/1 ML VIAL IV ONE (00:32)
[2018-04-28 01:33] VITALS: BP 91/73
--- NOTE | 2018-04-28 07:40 | EKG REPORT ---
SEVERITY:- NORMAL ECG - SINUS RHYTHM : Confirmed by: Thanh Murphy MD 28-Apr-2018 07:40:26
== END 2018-04-28 01:33 | disposition home or self-care (01) ==
LOC: ER 21:13
DX: R06.02 Shortness of breath (principal); R05 Cough; J02.9 Acute pharyngitis, unspecified; R07.89 Other chest pain; R09.89 Other specified symptoms and signs involving the circulatory and respiratory systems; Z88.8 Allergy status to other drugs, medicaments and biological substances; Z88.1 Allergy status to other antibiotic agents; Z88.6 Allergy status to analgesic agent; Z88.0 Allergy status to penicillin
CPT/HCPCS: 93005; 94640; 99285; 96361; 96374; 36415; 82553; 82550; 84703; 85025; 80053; 84484; 71045; 93010; J1100; J7040; J7620